=== PATIENT | female | born 2000 | race Caucasian/White ===

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

== ENCOUNTER 2022-08-06 09:01 | Emergency (ER) | payer OTHER ==
[~2022-08-06] VITALS: Ht 165.1 cm; Wt 70.3 kg
[~2022-08-06 09:01] MED LIST changes: +CIPRO500 MG PO; +PHENERGAN25 M3 PO
[2022-08-06 09:52] LABS: BASO % 0.4 % (0.0-1.0); EOS # 0.3 10*3/uL (0.0-0.4); EOS % 3.4 % (1.0-4.0); HEMATOCRIT 39.4 % (37.0-47.0); LYMPH # 1.1 10*3/uL (1.3-4.4); LYMPH % 12.3 % (27.0-41.0); MEAN CELL VOLUME 91.6 fl (81.0-99.0); MEAN CORPUSCULAR HGB 31.6 pg (27.0-31.0); MEAN CORPUSCULAR HGB CONC 34.5 g/dl (33.0-37.0); MEAN PLATELET VOLUME 9.3 fl (9.6-12.3); MONO # 0.6 10*3/uL (0.1-1.0); NEUT % 76.8 % (47.0-73.0); PLATELET COUNT AUTOMATED 265 10*3/uL (130-400); RED CELL DISTRI WIDTH 12.6 % (0-14.5); WHITE BLOOD COUNT 9.1 10*3/uL (4.8-10.8)
[2022-08-06 10:06] LABS: ACT PARTIAL THROMBO TIME 30.8 SECONDS (20.0-32.1); INTERNATIONAL NORM RATIO 1.1 (2.0-3.5)
[2022-08-06 10:07] LABS: ALKALINE PHOSPHATASE 56 U/L (46-116); BETA-HCG, QUANT < 3.0 mIU/mL (0-10); BUN 12 mg/dl (9-23); CHLORIDE 107 mmol/L (98-107); LIPASE 32 U/L (12-53); POTASSIUM 4.4 mmol/L (3.4-5.1); SGPT/ALT 14 U/L (10-49); TOTAL PROTEIN 7.4 gm/dL (6.0-8.0)
== END 2022-08-06 18:17 | disposition home or self-care (01) ==
LOC: ED 09:01
PROVIDERS: Emergency Medicine
DX: R10.11 Right upper quadrant pain (principal); Z88.1 Allergy status to other antibiotic agents; Z79.899 Other long term (current) drug therapy

== ENCOUNTER → 2022-09-09 | Outpatient (CLI) | payer OTHER ==
[~2022-09-09] MED LIST changes: +BUSPIRONE HCL7.5 MG PO; +EUTHYROX88 MCG PO; +LEVOTHYROXINE50 MC1 PO
== END | disposition home or self-care (01) ==
LOC: NM 00:40
PROVIDERS: ATTEND Surgery
DX: R10.0 Acute abdomen (principal)

== ENCOUNTER → 2022-09-13 | Day surgery (SDC) | payer OTHER ==
[~2022-09-13] VITALS: Ht 165.1 cm; Wt 70.3 kg
[2022-09-13 08:27] VITALS: BP 114/64
[2022-09-13 08:50] VITALS: BP 95/41
[2022-09-13 09:05] VITALS: BP 77/51
[2022-09-13 09:20] VITALS: BP 95/58
== END | disposition home or self-care (01) ==
LOC: SDC 09-09 10:15
PROVIDERS: ATTEND Surgery
DX: R10.11 Right upper quadrant pain (principal); K29.50 Unspecified chronic gastritis without bleeding; F41.9 Anxiety disorder, unspecified; F32.A Depression, unspecified

== ENCOUNTER → 2022-09-23 | Day surgery (SDC) | payer OTHER ==
[2022-09-20 14:30] VITALS: BP 119/70
[~2022-09-23] VITALS: Ht 165.1 cm; Wt 70.3 kg
[~2022-09-23] MED LIST changes: +COLACE100 MG PO; +HYDROCODONE-AC1 EAC1 PO; +ONDANSETRON HYDR4 M1 PO
[2022-09-23 07:30] VITALS: BP 118/67
[2022-09-23 09:29] VITALS: BP 122/76
[2022-09-23 09:44] VITALS: BP 111/62
[2022-09-23 09:59] VITALS: BP 109/65
[2022-09-23 10:14] VITALS: BP 105/58
[2022-09-23 10:29] VITALS: BP 109/71
== END | disposition home or self-care (01) ==
LOC: SDC 09-20 14:00
PROVIDERS: ATTEND Surgery
DX: K82.8 Other specified diseases of gallbladder (principal); K81.1 Chronic cholecystitis; F41.9 Anxiety disorder, unspecified; F32.A Depression, unspecified; Z88.1 Allergy status to other antibiotic agents; Z79.899 Other long term (current) drug therapy

== ENCOUNTER → 2025-03-22 | Outpatient (CLI) | payer BC | END | disposition home or self-care (01) | LOC: US 10:10 | PROVIDERS: ATTEND Nurse Practitioner Women's Health | DX: Z34.01 Encounter for supervision of normal first pregnancy, first trimester (principal); Z3A.08 8 weeks gestation of pregnancy ==